=== PATIENT | female | born 1980 | race Caucasian/White ===

== ENCOUNTER 2020-11-09 16:21 | Emergency (ER) | payer OTHER ==
[~2020-11-09] VITALS: Ht 162.6 cm; Wt 96.6 kg
[2020-11-09 16:51] VITALS: BP_SYST 139
--- NOTE | 2020-11-09 17:12 | NUR ---
Patient to ER bed 5 to gown for evaluation. Side rails up.
--- NOTE | 2020-11-09 17:15 | NUR ---
Pt came into ER with complaint of suicidal ideation. Pt reports coming from her work at [employer] and having suicidal thoughts to cut her wrists with a boxcutter at work. Pt is AAOX4 speaking full sentences. SI precautions applied.
--- NOTE | 2020-11-09 17:17 | NUR ---
ABNER Cannon at bedside examining patient.
--- NOTE | 2020-11-09 17:37 | NUR ---
security at bedside for wanding
--- NOTE | 2020-11-09 17:37 | NUR ---
Sitter at bedside.
--- NOTE | 2020-11-09 18:15 | NUR ---
Lab at bedside.
[2020-11-09 18:40] LABS: BASOPHILS % (AUTO) 0.4 % (0.0-2.0); EOSINOPHILS # (AUTO) 0.3 K/uL (0.0-0.4); EOSINOPHILS % (AUTO) 2.6 % (0.0-4.0); HEMATOCRIT 38.9 % (36-48); HEMOGLOBIN 13.5 g/dL (12.0-16.0); LYMPHOCYTES # (AUTO) 3.1 K/uL (1.0-5.5); LYMPHOCYTES % (AUTO) 28.9 % (20.5-51.5); MEAN CORPUSCULAR HEMOGLOBIN 32 pg (27-31); MEAN CORPUSCULAR HGB CONC 35 % (32-36); MEAN CORPUSCULAR VOLUME 92 fL (79.0-98.0); MONOCYTES # (AUTO) 0.8 K/uL (0.0-1.0); MONOCYTES % (AUTO) 7.6 % (1.7-9.3); NEUTROPHILS # (AUTO) 6.5 K/uL (1.8-7.7); NEUTROPHILS % (AUTO) 60.5 % (40.0-70.0); PLATELET COUNT (AUTO) 310 K/uL (130-430); RED BLOOD CELL COUNT(AUTO) 4.24 MIL/uL (4.2-6.2); RED CELL DISTRIBUTION WIDTH 13.8 % (9.0-15.0); WHITE BLOOD COUNT (AUTO) 10.8 K/uL (4.8-10.8)
[2020-11-09 18:51] LABS: ANION GAP 6 (5-15); CALCIUM 8.8 mg/dL (8.4-11.0); CHLORIDE 104 mmol/L (98-107); CREATININE 0.67 mg/dL (0.55-1.30); GLUCOSE 114 mg/dL (70-99); POTASSIUM 4.6 mmol/L (3.5-5.1); SODIUM SERUM 138 mmol/L (136-145); UREA NITROGEN, BLOOD 13 mg/dL (8-21)
[2020-11-09 18:55] LABS: ALANINE AMINOTRANSFERASE 27 U/L (12-78); ALBUMIN 3.4 g/dL (3.4-4.8); ASPARTATE AMINOTRANSFERASE 14 U/L (10-37); CHOLESTEROL 189 mg/dL (<200); HDL CHOLESTEROL 72 mg/dL (>55); LDL CHOLESTEROL 102 mg/dL (<100); TOTAL BILIRUBIN 0.3 mg/dL (0.0-1.0); TRIGLYCERIDES 87 mg/dL (30-150)
[2020-11-09 18:58] LABS: GFR AFRICAN AMERICAN 124 mL/min (>90)
[2020-11-09 18:59] LABS: ALCOHOL, BLOOD < 3 mg/dL (<10)
[2020-11-09 19:12] LABS: ACETAMINOPHEN < 1 ug/mL (1-30)
--- NOTE | 2020-11-09 19:26 | NUR ---
Pt ambulated to restroom for urine sample.
--- NOTE | 2020-11-09 19:28 | NUR ---
REPORT RECEIEVED FROM DONAVAN KEENAN. PATIENT AAOX4 WITH SITTER AT BEDSIDE. CURRENTLY DENYING ANY SUICIDAL IDEATION. DENIES ANY SOB OR CHEST PAIN. VSS.
--- NOTE | 2020-11-09 19:28 | NUR ---
Care endorsed to Charisse GO
--- NOTE | 2020-11-09 19:32 | NUR ---
Urine and covid swab collected and sent to lab.
[2020-11-09 19:48] LABS: BILIRUBIN,URINE NEGATIVE (NEGATIVE); BLOOD, URINE NEGATIVE (NEGATIVE); COLOR,URINE YELLOW (YELLOW); GLUCOSE,URINE NEGATIVE (NEGATIVE); KETONES,URINE NEGATIVE (NEGATIVE); NITRITE, URINE POSITIVE (NEGATIVE); PH,URINE 6.5 (5.0-8.0); PROTEIN URINE NEGATIVE (NEGATIVE); UROBILINOGEN,URINE 0.2 (0.2-1.0)
[2020-11-09 19:59] LABS: CLARITY/URINE HAZY (CLEAR); LEUKOCYTE ESTERASE ,URINE TRACE (NEGATIVE)
[2020-11-09 20:00] LABS: BACTERIA,URINE MODERATE /HPF (None Seen); MUCUS,URINE None Seen /LPF (None Seen); RBC,URINE NONE SEEN /HPF (0-3)
[2020-11-09 20:01] LABS: BARBITURATE, URINE NEGATIVE (NEG <=200); BENZODIAZEPINE, URINE NEGATIVE (NEG <=150); CANNABINOID, URINE POSITIVE (NEG <=50); COCAINE, URINE NEGATIVE (NEG <=150); METHAMPHETAMINES SCREEN,URINE NEGATIVE (NEG <=500); OPIATE, URINE NEGATIVE (NEG <=100); PHENCYCLIDINE SCREEN,URINE NEGATIVE (NEG <=25); UR TRICYCLIC ANTIDEPRESSANTS NEGATIVE (NEG <=300); URINE AMPHETAMINE NEGATIVE (NEG <=500); URINE METHADONE NEGATIVE (NEG <=200); URINE OXYCODONE SCREEN NEGATIVE (NEG <=100); URINE PROPOXYPHENE SCREEN NEGATIVE (NEG <=300)
--- NOTE | 2020-11-09 20:27 | NUR ---
Patient is medically cleared by Dr. Casas at this time.
[2020-11-09] MEDS: SULFAMETHOXAZOLE/TRIMETHOPR DS 1 TABLET PO ONE (20:39)
--- NOTE | 2020-11-09 22:14 | NUR ---
Patient resting quietly. No acute distress noted. Vital signs within normal range.
--- NOTE | 2020-11-09 22:34 | NUR ---
patient moved to bed 1
--- NOTE | 2020-11-10 | NUR ---
Patient resting quietly. No acute distress noted. Vital signs within normal range. SITTER AT BEDSIDE.
--- NOTE | 2020-11-10 02:00 | NUR ---
Patient resting quietly. No acute distress noted. Vital signs within normal range.
--- NOTE | 2020-11-10 04:00 | NUR ---
Patient resting quietly. No acute distress noted. Vital signs within normal range. PT COMPLAINED OF HEADACHE DUE TO THE ER BEING LOUD AND THE LIGHTS BEING ON. NOTIFIED MD. GAVE ORDER FOR MOTRIN. PATIENT REFUSED THE MOTRIN STATED "THIS IS NOT GOING TO DO ANYTHING I DO NOT WANT IT". MD MADE AWARE.
[2020-11-10] MEDS: IBUPROFEN 600 MG TABLET PO ONE (04:08)
--- NOTE | 2020-11-10 06:30 | NUR ---
PATIENT MOVED TO BED 2.
--- NOTE | 2020-11-10 07:18 | NUR ---
ENDORSMENT GIVEN TO DONAVAN KEENAN.
--- NOTE | 2020-11-10 07:19 | NUR ---
Pt asleep in [facility]. Sitter at bedside. VSS
--- NOTE | 2020-11-10 11:19 | NUR ---
Pt given turkey sandwich, chips, apple juice, and peaches.
--- NOTE | 2020-11-10 12:21 | NUR ---
ER at bedside examining patient.
[2020-11-10 12:46] VITALS: BP_SYST 132
--- NOTE | 2020-11-10 12:46 | NUR ---
Patient given written and verbal discharge instructions and verbalizes understanding. ER MD discussed with patient the results and treatment provided. Patient in stable condition. ID arm band removed. Patient educated on pain management and to follow up with PMD. Pain Scale 0/10. Opportunity for questions provided and answered. Medication side effect fact sheet provided.
== END 2020-11-10 12:46 | disposition home or self-care (01) ==
LOC: SED 16:21
DX: R45.851 Suicidal ideations (principal); F12.90 Cannabis use, unspecified, uncomplicated; F17.290 Nicotine dependence, other tobacco product, uncomplicated; F32.9 Major depressive disorder, single episode, unspecified; Z79.899 Other long term (current) drug therapy; Z20.822 Contact with and (suspected) exposure to COVID-19
CPT/HCPCS: 36415; 80053; 80061; 80307; 81000; 83036; 85025; 87086; 87426; 99285; G0480; G0481; G0482